=== PATIENT | male | born 1995 | race Hispanic/Latino ===

== ENCOUNTER 2019-01-26 11:19 | Observation (INO) | payer OTHER ==
[~2019-01-26] VITALS: Ht 177.8 cm; Wt 82.3 kg
[2019-01-26 12:05] LABS: BASO # 0.1 10^3/uL (0.0-0.2); BASO % 0.4 % (0.0-1.0); EOS % 0.1 % (0.0-3.0); HEMATOCRIT 54.4 % (42.0-52.0); HEMOGLOBIN 18.6 g/dl (13.5-17.5); LYMPH # 1.6 10^3/uL (1.5-5.0); LYMPH % 9.8 % (24.0-44.0); MEAN CORPUSCULAR HEMOGLOBIN 30.6 pg (27.0-33.0); MEAN CORPUSCULAR HGB CONC 34.2 g/dl (32.0-36.5); MEAN CORPUSCULAR VOLUME 89.5 fl (80.0-96.0); MONO # 0.8 10^3/uL (0.0-0.8); MONO % 4.6 % (0.0-5.0); NEUTROPHILS # 13.8 10^3/uL (1.5-8.5); NEUTROPHILS % 84.5 % (36.0-66.0); PLATELET COUNT, AUTOMATED 318 10^3/uL (150-450); RED BLOOD COUNT 6.08 10^6/uL (4.30-6.10); WHITE BLOOD COUNT 16.4 10^3/uL (4.0-10.0)
[2019-01-26] MEDS ORDERED: NS 1,000 ML IV ONE ×2 (12:30→13:15)
[2019-01-26 12:44] LABS: CALCIUM LEVEL 10.5 MG/DL (8.5-10.1); CREATININE FOR GFR 2.21 MG/DL (0.70-1.30); GLOMERULAR FILTRATION RATE 38.8 (>60); POTASSIUM SERUM 5.5 MEQ/L (3.5-5.1); THYROID STIMULATING HORMONE 3.35 uIU/ML (0.358-3.740)
[2019-01-26] MEDS ORDERED: ONDANSETRON 4MG/2ML VIAL (J2405) IV ONE (12:45)
[2019-01-26 13:02] LABS: ALBUMIN 5.4 GM/DL (3.2-5.2); BILIRUBIN,DIRECT 0.3 MG/DL (0.0-0.2); BILIRUBIN,TOTAL 1.5 MG/DL (0.2-1.0)
[2019-01-26 13:08] LABS: MAGNESIUM LEVEL 1.9 MG/DL (1.8-2.4); PHOSPHORUS LEVEL 0.8 MG/DL (2.5-4.9)
[2019-01-26] MEDS ORDERED: FISH1000 PO (13:24)
[2019-01-26] MEDS ORDERED: VITMTA PO (13:24)
--- NOTE | 2019-01-26 13:51 | REP ---
CHEST: Near syncopal episode. COMPARISON: No priors. The technique utilized in obtaining the radiograph has magnified the cardiac silhouette and accentuated the interstitial markings. FINDINGS: The superior mediastinal structures are midline. The cardiac silhouette is unremarkable in size, shape, and position. The diaphragmatic surfaces of the lungs are regular, and the costophrenic angles are clear. The pulmonary harmon are clear. The imaged osseous structures are intact. IMPRESSION: There is no acute cardiopulmonary disease. Electronically Signed by Reynold Negrete DO 01/26/2019 03:18 P
--- NOTE | 2019-01-26 14:17 | HPEPDOC ---
General Date of Admission 01/26/19 Date of Service: Jan 26, 2019 Chief Complaint The patient is a 24-year-old male admitted with a reason for visit of Syncope. 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 Patient had completed a memorial run from [place] to [facility] today. He ran for about 1hour and 40 minutes towards the end of the run he was feeling very deconditioned and getting fatigued. normally he runs about 4 to 6 miles 3 times a week today he pushed himself more. He says that in preperation for this run he had been loading up with fluids for the past 2 days. As ssson as he finished his knees and legs got very wobbly so he sat down and immediately vomited. He denied passing out. He denied any dizziness or light headedness. He has been otherwise feeling well before the run. In the ED he was found to have dehydration, TEMO , hypophosphatemia and hyperkalemia so admitted. Home Medications Scheduled Multivitamins (Thera M Plus Tablet) 1 Each Tablet, 1 TAB PO DAILY, (Reported) [place]-3 Fatty Acids/Fish Oil (Fish Oil 1,000 mg Capsule) 1 Each Capsule, 1,000 MG PO DAILY, (Reported) Allergies Coded Allergies: No Known Allergies (Unverified , 01/26/19) Past Medical History Medical History none Surgical History wisdom tooth extraction Family History Discussed with pateint . He parent, grandparents are health , no DM or HTn or Heart disease, Or stroke or cancer or kidney disease in the family that he knows of. Social History * Smoker: Denies Alcohol: occationally (about 3 to 4 beers on week ends. ) Drugs: denies A-FIB/CHADSVASC A-FIB History Current/History of A-Fib/PAF?: No Review of Systems Constitutional: Reports: Weakness, Fatigue; Denies: Chills, Fever, Night Sweats Eyes: Denies: Pain, Vision change ENT: Denies: Head Aches, Ear Pain, Dysphagia Skin: Denies: Rash, Lesions, Breakdown Pulmonary: Denies: Dyspnea, Cough Cardiovascular: Denies: Chest Pain, Palpitations, Orthopnea, Paroxysmal Noc. Dyspnea, Lt Headedness Gastrointestinal: Reports: Vomiting; Denies: Nausea, Abdominal Pain, Diarrhea, Constipation, Melena, Hematochezia, Other Symptoms Genitourinary: Denies: Dysuria, Frequency, Incontinence, Retention Hematologic: Denies: Bruising, Bleeding Excessively Musculoskeletal: Reports: Muscle Pain, Spasms Psych: Reports: Mood Normal; Denies: Depression, Memory Issues Physical Examination General Exam: Positive: Alert, Cooperative, No Acute Distress Eye Exam: Positive: PERRLA, Conjunctiva & lids normal, EOMI; Negative: Sclera icteric ENT Exam: Positive: Atraumatic, Mucous membr. moist/pink, Pharynx Normal Neck Exam: Positive: Supple; Negative: JVD, thyromegaly Chest Exam: Positive: Clear to auscultation, Normal air movement Heart Exam: Positive: Rate Normal, Regular Rhythm, Normal S1, Normal S2; Negative: Murmurs, Rubs Abdomen Exam: Positive: Normal bowel sounds, Soft; Negative: Tenderness, Hepatospenomegaly Extremity Exam: Positive: Normal pulses; Negative: Clubbing, Cyanosis, Edema Skin Exam: Positive: Nl turgor and temperature; Negative: Breakdown, Lesion Psych Exam: Positive: Mental status NL, Mood NL, Oriented x 3 Vital Signs Vital Signs Date Time Temp Pulse Resp B/P (MAP) Pulse Ox O2 Delivery O2 Flow Rate FiO2 01/26/19 12:30 101 128/62 (84) 96 01/26/19 11:34 97.1 17 Room Air Laboratory Data Labs 24H Laboratory Tests 2 01/26/19 11:36: Immature Granulocyte % (Auto) 0.6, White Blood Count 16.4H, Red Blood Count 6.08, Hemoglobin 18.6H, Hematocrit 54.4H, Mean Corpuscular Volume 89.5, Mean Corpuscular Hemoglobin 30.6, Mean Corpuscular Hemoglobin Concent 34.2, Red Cell Distribution Width 13.2, Platelet Count 318, Neutrophils (%) (Auto) 84.5H, Lymphocytes (%) (Auto) 9.8L, Monocytes (%) (Auto) 4.6, Eosinophils (%) (Auto) 0.1, Basophils (%) (Auto) 0.4, Neutrophils # (Auto) 13.8H, Lymphocytes # (Auto) 1.6, Monocytes # (Auto) 0.8, Eosinophils # (Auto) 0.0, Basophils # (Auto) 0.1, Nucleated Red Blood Cells % (auto) 0.0, Anion Gap 11, Glomerular Filtration Rate 38.8L, Calcium Level 10.5H, Aspartate Amino Transf (AST/SGOT) 50H, Alanine Aminotransferase (ALT/SGPT) 48, Alkaline Phosphatase 68, Total Bilirubin 1.5H, Direct Bilirubin 0.3H, Total Protein 9.0H, Albumin 5.4H, Albumin/Globulin Ratio 1.50, Lipase 166, Thyroid Stimulating Hormone (TSH) 3.350 01/26/19 11:39: Phosphorus Level 0.8L, Magnesium Level 1.9, Total Creatine Kinase 419H 01/26/19 11:55: Bedside Glucose (Misc Panel) 91 CBC/BMP Laboratory Tests 01/26/19 11:36 Red Blood Count 6.08, Mean Corpuscular Volume 89.5, Mean Corpuscular Hemoglobin 30.6, Mean Corpuscular Hemoglobin Concent 34.2, Red Cell Distribution Width 13.2, Neutrophils (%) (Auto) 84.5 H, Lymphocytes (%) (Auto) 9.8 L, Monocytes (%) (Auto) 4.6, Eosinophils (%) (Auto) 0.1, Basophils (%) (Auto) 0.4, Neutrophils # (Auto) 13.8 H, Lymphocytes # (Auto) 1.6, Monocytes # (Auto) 0.8, Eosinophils # (Auto) 0.0, Basophils # (Auto) 0.1 Assessment/Plan 24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 Patient had completed a memorial run from [place] to [facility] today. He ran for about 1hour and 40 minutes towards the end of the run he was feeling very deconditioned and getting fatigued. normally he runs about 4 to 6 miles 3 times a week today he pushed himself more. He says that in preperation for this run he had been loading up with fluids for the past 2 days. As ssson as he finished his knees and legs got very wobbly so he sat down and immediately vomited. He denied passing out. He denied any dizziness or light headedness. He has been otherwise feeling well before the run. In the ED he was found to have dehydration, TEMO , hypophosphatemia and hyperkalemia so admitted. TEMO from dehydration. possibly preenal will get renal US to rule out obstruction NS Hypophosphatemia replced will recheck in PM . Hyperkalemia minor will monitor i expect it will be corrected with IVF. Plan / VTE VTE Prophylaxis Ordered?: Yes DANITA HOLMAN MD Jan 26, 2019 14:17
[2019-01-26] MEDS: NS 1,000 ML IV SCH (15:05)
[2019-01-26 15:30] VITALS: BP 101/60
[2019-01-26] MEDS ORDERED: SODIUM PHOSPHATE INJ 30 MMOL in D5W 500 ML IV ONE (16:00)
[2019-01-26 20:22] LABS: CALCIUM LEVEL 8.6 MG/DL (8.5-10.1); CREATININE FOR GFR 1.65 MG/DL (0.70-1.30); GLOMERULAR FILTRATION RATE 54.4 (>60); PHOSPHORUS LEVEL 4.5 MG/DL (2.5-4.9); POTASSIUM SERUM 4.2 MEQ/L (3.5-5.1)
[2019-01-26 22:00] VITALS: BP 80/50
[2019-01-26 22:15] VITALS: BP 110/70
[2019-01-27] MEDS: NS 1,000 ML IV SCH ×2 (02:09→07:00)
--- NOTE | 2019-01-27 05:49 | ECGEPIP ---
[facility] - ED Test Date: 2019-01-26 Pat Name: SARAH TIJERINA Department: Room: - Gender: Male [employer]: TC : 1995 Requested By: Ez Del Toro Order Number: [id number] Reading MD: Ez Gilliam Measurements Intervals [place] Rate: 123 P: 68 OR: 141 QRS: 99 QRSD: 84 T: 31 QT: 294 QTc: 422 Interpretive Statements SINUS TACHYCARDIA BORDERLINE RIGHT AXIS DEVIATION NO PRIORS FOR COMPARISON Electronically Signed on 01-27-2019 5:49:26 EDT by Ez Gilliam
[2019-01-27 06:00] VITALS: BP 122/80
[2019-01-27 06:12] LABS: BASO % 0.2 % (0.0-1.0); EOS # 0.1 10^3/uL (0.0-0.5); EOS % 0.7 % (0.0-3.0); HEMATOCRIT 41.4 % (42.0-52.0); LYMPH # 2.3 10^3/uL (1.5-5.0); LYMPH % 27.9 % (24.0-44.0); MEAN CORPUSCULAR HEMOGLOBIN 30.9 pg (27.0-33.0); MEAN CORPUSCULAR HGB CONC 32.9 g/dl (32.0-36.5); MEAN CORPUSCULAR VOLUME 94.1 fl (80.0-96.0); MONO # 0.8 10^3/uL (0.0-0.8); MONO % 9.2 % (0.0-5.0); NEUTROPHILS # 5.1 10^3/uL (1.5-8.5); NEUTROPHILS % 61.6 % (36.0-66.0); WHITE BLOOD COUNT 8.3 10^3/uL (4.0-10.0)
[2019-01-27 06:23] LABS: HEMOGLOBIN 13.6 g/dl (13.5-17.5); PLATELET COUNT, AUTOMATED 165 10^3/uL (150-450)
[2019-01-27 06:30] LABS: BLOOD UREA NITROGEN 21 MG/DL (7-18); CALCIUM LEVEL 8.1 MG/DL (8.5-10.1); CARBON DIOXIDE LEVEL 27 MEQ/L (21-32); CHLORIDE LEVEL 108 MEQ/L (98-107); CREATININE FOR GFR 1.27 MG/DL (0.70-1.30); GLOMERULAR FILTRATION RATE > 60.0 (>60); GLUCOSE, FASTING 86 MG/DL (70-100); POTASSIUM SERUM 3.7 MEQ/L (3.5-5.1); SODIUM LEVEL 141 MEQ/L (136-145)
--- NOTE | 2019-01-27 06:38 | REP ---
REASON: Acute kidney injury. PRIORS: None. FINDINGS: Multiple ultrasonographic images of the right kidney show the right kidney to measure 12.6 x 5.9 x 5.1 cm. The renal cortical echotexture is unremarkable. There are no masses. There is good corticomedullary differentiation. There is no hydronephrosis. There are no perinephric fluid collections. Multiple ultrasonographic images of the left kidney show the left kidney to measure 12.1 x 5.2 x 4.7 cm. The renal cortical echotexture is unremarkable. There are no masses. There is good corticomedullary differentiation. There is no hydronephrosis. There are no perinephric fluid collections. Images of the urinary bladder were obtained solely for the purpose of assessing for urojet phenomenon. Color Doppler imaging shows bilateral urojet phenomenon. IMPRESSION: Unremarkable renal ultrasonography. Electronically Signed by Reynold Negrete DO 01/27/2019 09:13 A
--- NOTE | 2019-01-27 06:49 | DS.PDOC ---
Discharge Summary General Date of Admission Jan 26, 2019 at 11:20 Date of Discharge 01/27/19 Discharge Summary PROCEDURES PERFORMED DURING STAY: [None]. DISCHARGE DIAGNOSES: Acute renal failure due to dehydration Hypophosphatemia hyperkalemia COMPLICATIONS/CHIEF COMPLAINT: Acute Kidney Injury Electrolyte Abnormality. 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 Patient had completed a memorial run from [place] to [facility] today. He ran for about 1hour and 40 minutes towards the end of the run he was feeling very deconditioned and getting fatigued. normally he runs about 4 to 6 miles 3 times a week today he pushed himself more. He says that in preparation for this run he had been loading up with fluids for the past 2 days. As ssson as he finished his knees and legs got very wobbly so he sat down and immediately vomited. He denied passing out. He denied any dizziness or light headedness. He has been otherwise feeling well before the run. In the ED he was found to have dehydration, TEMO , hypophosphatemia and hyperkalemia so admitted. TEMO from dehydration. Renal US no obstruction. Hypophosphatemia replaced Hyperkalemia corrected. DISCHARGE MEDICATIONS: Please see below. ALLERGIES: Please see below. PHYSICAL EXAMINATION ON DISCHARGE: VITAL SIGNS: Please see below. General Exam: Positive: Alert, Cooperative, No Acute Distress Eye Exam: Positive: PERRLA, Conjunctiva & lids normal, EOMI; Negative: Sclera icteric ENT Exam: Positive: Atraumatic, Mucous membr. moist/pink, Pharynx Normal Neck Exam: Positive: Supple; Negative: JVD, thyromegaly Chest Exam: Positive: Clear to auscultation, Normal air movement Heart Exam: Positive: Rate Normal, Regular Rhythm, Normal S1, Normal S2; Negative: Murmurs, Rubs Abdomen Exam: Positive: Normal bowel sounds, Soft; Negative: Tenderness, Hepatospenomegaly Extremity Exam: Positive: Normal pulses; Negative: Clubbing, Cyanosis, Edema Skin Exam: Positive: Nl turgor and temperature; Negative: Breakdown, Lesion Psych Exam: Positive: Mental status NL, Mood NL, Oriented x 3 LABORATORY DATA: Please see below. ACTIVITY: [As tolerated]. DIET: As tolerated DISCHARGE PLAN: Home DISPOSITION: Home DISCHARGE INSTRUCTIONS: Follow up with [facility] in [place] DISCHARGE CONDITION: [Stable]. TIME SPENT ON DISCHARGE: 35 minutes. Vital Signs/I&Os Vital Signs Date Time Temp Pulse Resp B/P (MAP) Pulse Ox O2 Delivery O2 Flow Rate FiO2 01/26/19 22:15 70 110/70 (83) 01/26/19 22:00 98.9 16 97 01/26/19 11:34 Room Air I&O- Last 24 Hours up to 6 AM 01/27/19 06:00 Intake Total 3135 ml Output Total 375 ml Balance 2760 ml Laboratory Data Labs 24H Laboratory Tests 2 01/26/19 11:36: Immature Granulocyte % (Auto) 0.6, White Blood Count 16.4H, Red Blood Count 6.08, Hemoglobin 18.6H, Hematocrit 54.4H, Mean Corpuscular Volume 89.5, Mean Corpuscular Hemoglobin 30.6, Mean Corpuscular Hemoglobin Concent 34.2, Red Cell Distribution Width 13.2, Platelet Count 318, Neutrophils (%) (Auto) 84.5H, Lymphocytes (%) (Auto) 9.8L, Monocytes (%) (Auto) 4.6, Eosinophils (%) (Auto) 0.1, Basophils (%) (Auto) 0.4, Neutrophils # (Auto) 13.8H, Lymphocytes # (Auto) 1.6, Monocytes # (Auto) 0.8, Eosinophils # (Auto) 0.0, Basophils # (Auto) 0.1, Nucleated Red Blood Cells % (auto) 0.0, Anion Gap 11, Glomerular Filtration Rate 38.8L, Calcium Level 10.5H, Aspartate Amino Transf (AST/SGOT) 50H, Alanine Aminotransferase (ALT/SGPT) 48, Alkaline Phosphatase 68, Total Bilirubin 1.5H, Direct Bilirubin 0.3H, Total Protein 9.0H, Albumin 5.4H, Albumin/Globulin Ratio 1.50, Lipase 166, Thyroid Stimulating Hormone (TSH) 3.350 01/26/19 11:39: Phosphorus Level 0.8L, Magnesium Level 1.9, Total Creatine Kinase 419H 01/26/19 11:55: Bedside Glucose (Misc Panel) 91 01/26/19 19:44: Anion Gap 7L, Glomerular Filtration Rate 54.4L, Calcium Level 8.6#, Phosphorus Level 4.5#, Blood Urea Nitrogen 22H, Creatinine 1.65H, Sodium Level 140, Potassium Level 4.2#, Chloride Level 108H, Carbon Dioxide Level 25 01/27/19 05:42: Immature Granulocyte % (Auto) 0.4, White Blood Count 8.3, Red Blood Count 4.40, Hemoglobin 13.6#, Hematocrit 41.4L, Mean Corpuscular Volume 94.1, Mean Corpuscular Hemoglobin 30.9, Mean Corpuscular Hemoglobin Concent 32.9, Red Cell Distribution Width 13.7, Platelet Count 165#, Neutrophils (%) (Auto) 61.6, Lymphocytes (%) (Auto) 27.9, Monocytes (%) (Auto) 9.2H, Eosinophils (%) (Auto) 0.7, Basophils (%) (Auto) 0.2, Neutrophils # (Auto) 5.1, Lymphocytes # (Auto) 2.3, Monocytes # (Auto) 0.8, Eosinophils # (Auto) 0.1, Basophils # (Auto) 0.0, Nucleated Red Blood Cells % (auto) 0.0, Anion Gap 6L, Glomerular Filtration Rate > 60.0, Blood Urea Nitrogen 21H, Creatinine 1.27, Sodium Level 141, Potassium Level 3.7, Chloride Level 108H, Carbon Dioxide Level 27, Calcium Level 8.1L CBC/BMP Laboratory Tests 01/26/19 11:36 Red Blood Count 6.08, Mean Corpuscular Volume 89.5, Mean Corpuscular Hemoglobin 30.6, Mean Corpuscular Hemoglobin Concent 34.2, Red Cell Distribution Width 13.2, Neutrophils (%) (Auto) 84.5 H, Lymphocytes (%) (Auto) 9.8 L, Monocytes (%) (Auto) 4.6, Eosinophils (%) (Auto) 0.1, Basophils (%) (Auto) 0.4, Neutrophils # (Auto) 13.8 H, Lymphocytes # (Auto) 1.6, Monocytes # (Auto) 0.8, Eosinophils # (Auto) 0.0, Basophils # (Auto) 0.1 01/26/19 19:44 Calcium Level 8.6 # 01/27/19 05:42 Red Blood Count 4.40, Mean Corpuscular Volume 94.1, Mean Corpuscular Hemoglobin 30.9, Mean Corpuscular Hemoglobin Concent 32.9, Red Cell Distribution Width 13.7, Neutrophils (%) (Auto) 61.6, Lymphocytes (%) (Auto) 27.9, Monocytes (%) (Auto) 9.2 H, Eosinophils (%) (Auto) 0.7, Basophils (%) (Auto) 0.2, Neutrophils # (Auto) 5.1, Lymphocytes # (Auto) 2.3, Monocytes # (Auto) 0.8, Eosinophils # (Auto) 0.1, Basophils # (Auto) 0.0, Calcium Level 8.1 L FSBS Laboratory Tests Test 01/26/19 11:55 Range/Units Bedside Glucose (Misc Panel) 91 70-105 MG/DL Discharge Medications Scheduled Multivitamins (Thera M Plus Tablet) 1 Each Tablet, 1 TAB PO DAILY, (Reported) [place]-3 Fatty Acids/Fish Oil (Fish Oil 1,000 mg Capsule) 1 Each Capsule, 1,000 MG PO DAILY, (Reported) Allergies Coded Allergies: No Known Allergies (Unverified , 01/26/19) DANITA HOLMAN MD Jan 27, 2019 06:49
== END 2019-01-27 09:25 | disposition home or self-care (01) ==
LOC: M ED 11:19 → M ED INP 11:20 → UNDOADMOB 13:59 → M ED INP 13:59 → M MSPAV 15:40
PROVIDERS: ADMIT Internal Medicine Nephrology; ATTEND Internal Medicine Nephrology
DX: N17.9 Acute kidney failure, unspecified (principal); E86.0 Dehydration; E83.39 Other disorders of phosphorus metabolism; E87.5 Hyperkalemia; R11.10 Vomiting, unspecified; R55 Syncope and collapse; Z79.899 Other long term (current) drug therapy
CPT/HCPCS: 36415; 71045; 76775; 80048; 80076; 82550; 83690; 83735; 84100; 84443; 85025; 93005; 93041; 94760; 96361; 96365; 96366; 96375; 99285; J2405